=== PATIENT | female | born 1935 | race Caucasian/White ===

== ENCOUNTER 2017-06-16 06:12 | Inpatient (IN) | payer OTHER ==
[~2017-06-16] VITALS: Ht 154.9 cm; Wt 52.2 kg
[2017-06-16 06:12] VITALS: BP_SYST 150
[2017-06-16] MEDS ORDERED: NACL 0.9% 1,000 ML IV ONE (06:15)
[2017-06-16] MEDS ORDERED: ONDANSETRON HCL 4 MG/2 ML VIAL IVP ONE (06:15)
[2017-06-16] MEDS ORDERED: DIPHENOXYLATE HCL/ATROP SULF 2.5 MG TAB PO ONE (06:30)
[2017-06-16 06:47] LABS: BASOPHILS % (AUTO) 0.7 % (0.0-2.0); EOSINOPHILS # (AUTO) 0.3 K/uL (0.0-0.4); EOSINOPHILS % (AUTO) 3.9 % (0.0-4.0); HEMATOCRIT 42.4 % (36-48); HEMOGLOBIN 13.9 g/dL (12.0-16.0); LYMPHOCYTES # (AUTO) 2.9 K/uL (1.0-5.5); LYMPHOCYTES % (AUTO) 41.5 % (20.5-51.5); MEAN CORPUSCULAR HEMOGLOBIN 29 pg (27-31); MEAN CORPUSCULAR HGB CONC 33 % (32-36); MEAN CORPUSCULAR VOLUME 87 fL (79.0-98.0); MONOCYTES # (AUTO) 0.6 K/uL (0.0-1.0); MONOCYTES % (AUTO) 8.8 % (1.7-9.3); NEUTROPHILS # (AUTO) 3.1 K/uL (1.8-7.7); NEUTROPHILS % (AUTO) 45.1 % (40.0-70.0); PLATELET COUNT (AUTO) 221 K/uL (130-430); RED BLOOD CELL COUNT(AUTO) 4.89 MIL/uL (4.2-6.2); RED CELL DISTRIBUTION WIDTH 12.4 % (9.0-15.0); WHITE BLOOD COUNT (AUTO) 6.9 K/uL (4.8-10.8)
[2017-06-16 06:50] LABS: ANION GAP 13 (5-15); CALCIUM 9.6 mg/dL (8.4-11.0); CHLORIDE 104 mmol/L (98-107); GLUCOSE 151 mg/dL (70-99); POTASSIUM 3.2 mmol/L (3.5-5.1); SODIUM SERUM 144 mmol/L (136-145); UREA NITROGEN, BLOOD 19 mg/dL (8-21)
[2017-06-16 06:56] LABS: ALANINE AMINOTRANSFERASE 23 U/L (12-78); ALBUMIN 3.8 g/dL (3.4-4.8); ASPARTATE AMINOTRANSFERASE 27 U/L (10-37); LIPASE 233 U/L (73-393); TOTAL BILIRUBIN 0.3 mg/dL (0.0-1.0)
[2017-06-16] MEDS ORDERED: LEVO75TA7 PO (07:12)
[2017-06-16] MEDS ORDERED: ATEN-41 PO (07:12)
[2017-06-16] MEDS ORDERED: SIMV40TA2 PO (07:12)
[2017-06-16] MEDS ORDERED: LEVOFLOXACIN 500 MG/D5W 100 ML IV ONE (07:15)
[2017-06-16] MEDS ORDERED: NACL 0.9% 500 ML IV ONE (08:15)
[2017-06-16 09:19] VITALS: BP_SYST 156
[2017-06-16 09:22] LABS: BILIRUBIN,URINE NEGATIVE (NEGATIVE); BLOOD, URINE NEGATIVE (NEGATIVE); CLARITY/URINE CLEAR (CLEAR); COLOR,URINE YELLOW (YELLOW); GLUCOSE,URINE NEGATIVE (NEGATIVE); KETONES,URINE NEGATIVE (NEGATIVE); LEUKOCYTE ESTERASE ,URINE NEGATIVE (NEGATIVE); NITRITE, URINE NEGATIVE (NEGATIVE); PH,URINE 8.5 (5.0-8.0); PROTEIN URINE NEGATIVE (NEGATIVE); UROBILINOGEN,URINE 0.2 (0.2-1.0)
[2017-06-16] MEDS ORDERED: ACETAMINOPHEN 325 MG TABLET PO PRN ×2 (10:15→10:30)
[2017-06-16] MEDS ORDERED: MORPHINE 2 MG/ML INJ. SYRINGE IVP PRN (10:15)
[2017-06-16] MEDS ORDERED: ATENOLOL 25 MG TABLET(TENORMIN) PO SCH (10:15)
[2017-06-16 12:00] VITALS: BP_SYST 137
[2017-06-16] MEDS ORDERED: LEVOTHYROXINE SODIUM 0.075 MG TABLET PO ONE (14:00)
[2017-06-16] MEDS: metroNIDAZOLE 500 mg/NS 100 ML IV SCH ×2 (14:23→22:17)
[2017-06-16] MEDS: D5NS 1,000 ML IV SCH ×2 (14:23→20:15)
[2017-06-16] MEDS: LEVOFLOXACIN 500 MG/D5W 100 ML IV SCH (15:40)
[2017-06-16 16:00] VITALS: BP_SYST 132
[2017-06-16 20:00] VITALS: BP_SYST 136
[2017-06-16] MEDS ORDERED: SIMVASTATIN 40 MG TABLET PO SCH (21:00)
[2017-06-16] MEDS: ONDANSETRON HCL 4 MG/2 ML VIAL IVP PRN (22:17)
[2017-06-16 23:13] VITALS: BP_SYST 132
[2017-06-17] MEDS: D5NS 1,000 ML IV SCH ×3 (03:26→21:03)
[2017-06-17] MEDS: metroNIDAZOLE 500 mg/NS 100 ML IV SCH ×3 (05:10→21:00)
[2017-06-17 08:00] VITALS: BP_SYST 131
[2017-06-17] MEDS: LEVOTHYROXINE SODIUM 0.075 MG TABLET PO SCH (08:37)
[2017-06-17 11:39] VITALS: BP_SYST 115
[2017-06-17] MEDS: LEVOFLOXACIN 500 MG/D5W 100 ML IV SCH (15:00)
[2017-06-17 15:16] VITALS: BP_SYST 126
[2017-06-17 15:21] VITALS: BP_SYST 133
[2017-06-17 20:02] VITALS: BP_SYST 175
[2017-06-17] MEDS: ONDANSETRON HCL 4 MG/2 ML VIAL IVP PRN (20:57)
[2017-06-17] MEDS ORDERED: cloNIDine HCL 0.1 MG TABLET PO ONE (21:00)
[2017-06-18] MEDS ORDERED: MECLIZINE HCL 25 MG TABLET (ANITVERT) PO SCH
[2017-06-18 00:41] VITALS: BP_SYST 163
[2017-06-18] MEDS ORDERED: MECLIZINE HCL 25 MG TABLET (ANITVERT) PO ONE (01:00)
[2017-06-18 01:08] VITALS: BP_SYST 113
[2017-06-18] MEDS ORDERED: MECLIZINE HCL 25 MG TABLET (ANITVERT) ONE (01:13)
[2017-06-18] MEDS: MECLIZINE HCL 25 MG TABLET (ANITVERT) PO SCH ×2 (05:42→11:38)
[2017-06-18] MEDS: metroNIDAZOLE 500 mg/NS 100 ML IV SCH ×2 (05:44→14:16)
[2017-06-18 08:00] VITALS: BP_SYST 136
[2017-06-18] MEDS: LEVOTHYROXINE SODIUM 0.075 MG TABLET PO SCH (09:00)
[2017-06-18 11:27] VITALS: BP_SYST 108
[2017-06-18] MEDS ORDERED: MECL12.584 PO (11:56)
[2017-06-18 14:30] VITALS: BP_SYST 140
[2017-06-18 15:29] VITALS: BP_SYST 140
== END 2017-06-18 15:45 | disposition home or self-care (01) | DRG 392 ==
LOC: SED 06:12 → SMU 08:12 → UNDODISIN 06-17 17:50
PROVIDERS: ADMIT Internal Medicine Hospice and Palliative Medicine; ATTEND Internal Medicine Hospice and Palliative Medicine
DX: K52.9 Noninfective gastroenteritis and colitis, unspecified (principal); E87.2 Acidosis; R42 Dizziness and giddiness; E03.9 Hypothyroidism, unspecified; E78.5 Hyperlipidemia, unspecified; I10 Essential (primary) hypertension; Z90.49 Acquired absence of other specified parts of digestive tract; Z88.0 Allergy status to penicillin; Z79.899 Other long term (current) drug therapy
CPT/HCPCS: 36415; 70450-TC; 70551; 80053; 81003; 83605; 83690-TC; 85025; 87040-TC; 96361; 96365; 96375; 99285; J1956; J2405; J3490; J7030; J7040; J7042; J8597